=== PATIENT | female | born 1970 | race Hispanic/Latino ===

== ENCOUNTER 2017-09-09 18:08 | Emergency (ER) | payer SELFPAY ==
[2017-09-09 18:16] VITALS: BP 114/66
[2017-09-09] MEDS ORDERED: NORCO 7.5/325 PO ONE (18:53)
[2017-09-09] MEDS ORDERED: MOTRIN PO ONE (18:53)
[2017-09-09] MEDS ORDERED: AUGMENTIN 875 MG PO ONE (18:53)
--- NOTE | 2017-09-09 19:07 | Emergency Department Report ---
Blank Doc - Documentation Documentation: Vision is a 47-year-old female who was bitten the left leg by therefore 4-month-old puppy. Patient jumped on her doctor just above the left knee. Patient's states that the dog has had its rabies shots and is healthy.
--- NOTE | 2017-09-09 19:37 | Emergency Department Report ---
ED Animal Bite HPI - General Chief Complaint: Animal Bite Stated Complaint: DOG BITE Time Seen by Provider: 09/09/17 18:34 Source: patient, family Mode of arrival: Ambulatory Limitations: No Limitations - History of Present Illness Initial Comments: This is a 47-year-old female who is presenting with left side pain secondary to dog bite. Patient states that her her large puppy got excited and jumped up on her and it nipped at her and bit her on the leg. Patient's daughter he's had its rabies shots is healthy. Patient states her pain is a 4 out of 10 in severity - Related Data Previous Rx's Medication Instructions Recorded Last Taken Type Albuterol Sulfate [Ventolin HFA] 2 puff IH Q4H PRN #1 hfa.aer.ad 06/27/13 Unknown Rx Azithromycin [Zithromax Z-ANN-MARIE] 250 mg PO DAILY #6 tab 06/27/13 Unknown Rx Prednisone 40 mg PO QDAY #10 tablet 06/27/13 Unknown Rx Promethazine /Codeine 5 ml PO Q6H PRN #60 ml 06/27/13 Unknown Rx [Phenergan/Codeine 6.25-10 mg/5 ml] Acetaminophen/Codeine 1 tab PO Q6H PRN #14 tab 05/27/14 Unknown Rx [Acetaminophen-Codeine #3 TAB] Cyclobenzaprine [Flexeril 10 MG 10 mg PO TID PRN #20 tablet 05/27/14 Unknown Rx TAB] Promethazine [Phenergan] 25 mg PO Q6H PRN #14 tablet 05/27/14 Unknown Rx Amoxicillin/Potassium Clav 1 each PO BID #14 tablet 09/09/17 Unknown Rx [Augmentin 875-125 Tablet] HYDROcodone/APAP 5-325 [[place] 1 each PO Q6HR PRN #12 tablet 09/09/17 Unknown Rx 5/325] Ibuprofen [Motrin 800 MG tab] 800 mg PO TID PRN #20 tablet 09/09/17 Unknown Rx Allergies Allergy/AdvReac Type Severity Reaction Status Date / Time No Known Allergies Allergy Verified 06/26/13 23:29 ED Review of Systems ROS: Stated complaint: DOG BITE Other details as noted in HPI Comment: All other systems reviewed and negative ED Past Medical Hx - Past Medical History Hx Hypertension: No Additional medical history: chronic back pain - Surgical History Past Surgical History?: No - Social History Smoking Status: Never Smoker Substance Use Type: None - Medications Home Medications: Home Medications Medication Instructions Recorded Confirmed Last Taken Type Albuterol Sulfate [Ventolin HFA] 2 puff IH Q4H PRN #1 hfa.aer.ad 06/27/13 Unknown Rx Azithromycin [Zithromax Z-ANN-MARIE] 250 mg PO DAILY #6 tab 06/27/13 Unknown Rx Prednisone 40 mg PO QDAY #10 tablet 06/27/13 Unknown Rx Promethazine /Codeine 5 ml PO Q6H PRN #60 ml 06/27/13 Unknown Rx [Phenergan/Codeine 6.25-10 mg/5 ml] Acetaminophen/Codeine 1 tab PO Q6H PRN #14 tab 05/27/14 Unknown Rx [Acetaminophen-Codeine #3 TAB] Cyclobenzaprine [Flexeril 10 MG 10 mg PO TID PRN #20 tablet 05/27/14 Unknown Rx TAB] Promethazine [Phenergan] 25 mg PO Q6H PRN #14 tablet 05/27/14 Unknown Rx Amoxicillin/Potassium Clav 1 each PO BID #14 tablet 09/09/17 Unknown Rx [Augmentin 875-125 Tablet] HYDROcodone/APAP 5-325 [[place] 1 each PO Q6HR PRN #12 tablet 09/09/17 Unknown Rx 5/325] Ibuprofen [Motrin 800 MG tab] 800 mg PO TID PRN #20 tablet 09/09/17 Unknown Rx ED Physical Exam - General Limitations: No Limitations General appearance: alert, in no apparent distress - Head Head exam: Present: atraumatic, normocephalic - Eye Eye exam: Present: normal appearance - ENT ENT exam: Present: mucous membranes moist - Neck Neck exam: Present: normal inspection - Respiratory Respiratory exam: Present: normal lung sounds bilaterally. Absent: respiratory distress - Cardiovascular Cardiovascular Exam: Present: regular rate, normal rhythm. Absent: systolic murmur, diastolic murmur, rubs, gallop - GI/Abdominal GI/Abdominal exam: Present: soft, normal bowel sounds - Extremities Exam Extremities exam: Present: normal inspection, other (2 small puncture wounds in the left distal thigh just above the knee) - Back Exam Back exam: Present: normal inspection - Neurological Exam Neurological exam: Present: alert, oriented X3 - Psychiatric Psychiatric exam: Present: normal affect, normal mood - Skin Skin exam: Present: warm, dry, intact, normal color. Absent: rash ED Course Vital Signs 09/09/17 18:13 Temperature 98.7 F Pulse Rate 91 H Respiratory 16 Rate Blood Pressure 114/66 O2 Sat by Pulse 98 Oximetry - Reevaluation(s) Reevaluation #1: 09/09/17 19:35 X-ray shows no foreign bodies. Critical care attestation.: If time is entered above; I have spent that time in minutes in the direct care of this critically ill patient, excluding procedure time. ED Disposition Clinical Impression: Puncture wound Dog bite Qualifiers: Encounter type: initial encounter Qualified Code(s): W54.0XXA - Bitten by dog, initial encounter Disposition: DC- TO HOME OR SELFCARE Is pt being admited?: No Does the pt Need Aspirin: No Condition: Stable Instructions: Animal Bite (ED) Prescriptions: Amoxicillin/Potassium Clav [Augmentin 875-125 Tablet] 1 each PO BID #14 tablet HYDROcodone/APAP 5-325 [[place] 5/325] 1 each PO Q6HR PRN #12 tablet PRN Reason: Pain Ibuprofen [Motrin 800 MG tab] 800 mg PO TID PRN #20 tablet PRN Reason: Pain
--- NOTE | 2017-09-09 21:52 | XRay Report ---
FINAL REPORT PROCEDURE: XR KNEE 1-2V LT TECHNIQUE: Left knee, two views HISTORY: FB (tooth fragments)Dog bit 4 inches above lateral of knee femur on outside COMPARISON: No prior studies are available for comparison. FINDINGS: No fracture or dislocation is seen. No joint effusion. No radiopaque foreign body is identified. IMPRESSION: No radiopaque foreign body is seen
== END 2017-09-09 19:40 | disposition home or self-care (01) ==
LOC: ED 18:08
DX: S71.152A Open bite, left thigh, initial encounter (principal); W54.0XXA Bitten by dog, initial encounter; Y93.89 Activity, other specified; Y92.89 Other specified places as the place of occurrence of the external cause; Y99.8 Other external cause status
CPT/HCPCS: 99283

== ENCOUNTER 2018-11-04 19:52 | Emergency (ER) | payer OTHER ==
--- NOTE | 2018-11-04 20:14 | Emergency Department Report ---
Blank Doc - Documentation Documentation: This is a 48-year-old female that presents with RUQ. Denies any n/v. This initial assessment/diagnostic orders/clinical plan/treatment(s) is/are subject to change based on patient's health status, clinical progression and re- assessment by fellow clinical providers in the ED. Further treatment and workup at subsequent clinical providers discretion. Patient/guardians urged not to elope from the ED as their condition may be serious if not clinically assessed and managed. Initial orders include: 1- Patient sent to [facility] for further evaluation and treatment 2- labs 3- UA
[2018-11-04 20:48] LABS: Basophils % (Auto) 0.6 % (0.0-1.8); Eosinophils # (Auto) 0.2 K/mm3 (0.0-0.4); Eosinophils % (Auto) 2.4 % (0.0-4.3); Hematocrit 36.6 % (30.3-42.9); Hemoglobin 12.1 gm/dl (10.1-14.3); Lymphocytes # (Auto) 2.4 K/mm3 (1.2-5.4); Lymphocytes % (Auto) 32.8 % (13.4-35.0); Mean Corpuscular HGB Conc 33 % (30-34); Mean Corpuscular Volume 83 fl (79-97); Monocytes # (Auto) 0.5 K/mm3 (0.0-0.8); Monocytes % (Auto) 6.6 % (0.0-7.3); Platelet Count 263 K/mm3 (140-440); Red Blood Count 4.44 M/mm3 (3.65-5.03); Red Cell Distribution Width 14.1 % (13.2-15.2)
[2018-11-04 21:05] LABS: Alanine Aminotransferase 14 units/L (7-56); Albumin 4.3 g/dL (3.9-5); BUN/Creatinine Ratio 16; Blood Urea Nitrogen 14 mg/dL (7-17); Calcium 9.2 mg/dL (8.4-10.2); Hemolysis Index 2
[2018-11-04 21:18] LABS: Bilirubin,Direct < 0.2 mg/dL (0-0.2)
[2018-11-04] MEDS ORDERED: TORADOL IV ONE (21:42)
[2018-11-04] MEDS ORDERED: NACL 0.9% 1000 ML 1,000 ML IV ONE (21:42)
[2018-11-04] MEDS ORDERED: ZOFRAN IV ONE (21:42)
[2018-11-04] MEDS ORDERED: PEPCID IV ONE (21:43)
--- NOTE | 2018-11-04 21:57 | Emergency Department Report ---
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 Patient states that the pain gets worse with food although she cannot remember what her initial meal that initially triggered the onset of the symptoms. Patient denies chest pain, shortness of breath, fever, chills, dysuria, urinary frequency and urgency, hematuria, vaginal bleeding, diarrhea, nausea, vomiting, dizziness, traumatic injury, heavy lifting, fall or back pain. MD Complaint: abdominal pain, flank pain -: Sudden, days(s) (4) Location: RUQ, R flank Radiation: RUQ, R flank Migration to: no migration Severity: severe Severity scale (0 -10): 8 Quality: aching, sharp Consistency: constant Improves With: nothing Worsens With: eating Context: other (none) Associated Symptoms: anorexia. denies: nausea, vomiting, diarrhea, fever, dysuria, hematochezia Treatments Prior to Arrival: other (None) - Related Data Previous Rx's Medication Instructions Recorded Last Taken Type Albuterol Sulfate [Ventolin HFA] 2 puff IH Q4H PRN #1 hfa.aer.ad 06/27/13 Unknown Rx Azithromycin [Zithromax Z-ANN-MARIE] 250 mg PO DAILY #6 tab 06/27/13 Unknown Rx Prednisone 40 mg PO QDAY #10 tablet 06/27/13 Unknown Rx Promethazine /Codeine 5 ml PO Q6H PRN #60 ml 06/27/13 Unknown Rx [Phenergan/Codeine 6.25-10 mg/5 ml] Acetaminophen/Codeine 1 tab PO Q6H PRN #14 tab 05/27/14 Unknown Rx [Acetaminophen-Codeine #3 TAB] Cyclobenzaprine [Flexeril 10 MG 10 mg PO TID PRN #20 tablet 05/27/14 Unknown Rx TAB] Promethazine [Phenergan] 25 mg PO Q6H PRN #14 tablet 05/27/14 Unknown Rx Amoxicillin/Potassium Clav 1 each PO BID #14 tablet 09/09/17 Unknown Rx [Augmentin 875-125 Tablet] HYDROcodone/APAP 5-325 [[place] 1 each PO Q6HR PRN #12 tablet 09/09/17 Unknown Rx 5/325] Ibuprofen [Motrin 800 MG tab] 800 mg PO TID PRN #20 tablet 11/05/18 Unknown Rx Tizanidine HCl [Zanaflex] 4 mg PO Q8H PRN #15 capsule 11/05/18 Unknown Rx traMADol [Ultram] 50 mg PO Q6HR PRN 3 Days #15 tablet 11/05/18 Unknown Rx Allergies Allergy/AdvReac Type Severity Reaction Status Date / Time No Known Allergies Allergy Verified 06/26/13 23:29 ED Review of Systems ROS: Stated complaint: RT SIDE PAIN Other details as noted in HPI Comment: All other systems reviewed and negative Constitutional: no symptoms reported, see HPI Eyes: as per HPI ENT: as per HPI Respiratory: no symptoms reported Cardiovascular: as per HPI Endocrine: no symptoms reported, see HPI Gastrointestinal: abdominal pain, other (right flank pain, right upper quadrant pain) Genitourinary: as per HPI, other (right flank pain) Musculoskeletal: as per HPI Skin: as per HPI Neurological: as per HPI Psychiatric: as per HPI Hematological/Lymphatic: as per HPI ED Past Medical Hx - Past Medical History Previous Medical History?: Yes Hx Hypertension: No Additional medical history: chronic back pain - Surgical History Past Surgical History?: No - Family History Family history: no significant - Social History Smoking Status: Never Smoker Substance Use Type: None - Medications Home Medications: Home Medications Medication Instructions Recorded Confirmed Last Taken Type Albuterol Sulfate [Ventolin HFA] 2 puff IH Q4H PRN #1 hfa.aer.ad 06/27/13 Unknown Rx Azithromycin [Zithromax Z-ANN-MARIE] 250 mg PO DAILY #6 tab 06/27/13 Unknown Rx Prednisone 40 mg PO QDAY #10 tablet 06/27/13 Unknown Rx Promethazine /Codeine 5 ml PO Q6H PRN #60 ml 06/27/13 Unknown Rx [Phenergan/Codeine 6.25-10 mg/5 ml] Acetaminophen/Codeine 1 tab PO Q6H PRN #14 tab 05/27/14 Unknown Rx [Acetaminophen-Codeine #3 TAB] Cyclobenzaprine [Flexeril 10 MG 10 mg PO TID PRN #20 tablet 05/27/14 Unknown Rx TAB] Promethazine [Phenergan] 25 mg PO Q6H PRN #14 tablet 05/27/14 Unknown Rx Amoxicillin/Potassium Clav 1 each PO BID #14 tablet 09/09/17 Unknown Rx [Augmentin 875-125 Tablet] HYDROcodone/APAP 5-325 [[place] 1 each PO Q6HR PRN #12 tablet 09/09/17 Unknown Rx 5/325] Ibuprofen [Motrin 800 MG tab] 800 mg PO TID PRN #20 tablet 11/05/18 Unknown Rx Tizanidine HCl [Zanaflex] 4 mg PO Q8H PRN #15 capsule 11/05/18 Unknown Rx traMADol [Ultram] 50 mg PO Q6HR PRN 3 Days #15 tablet 11/05/18 Unknown Rx ED Physical Exam - General Limitations: Language Barrier General appearance: alert, in no apparent distress - Head Head exam: Present: atraumatic, normocephalic, normal inspection - Eye Eye exam: Present: normal appearance, PERRL, EOMI Pupils: Present: normal accommodation - ENT ENT exam: Present: normal exam, normal orophraynx, mucous membranes moist, TM's normal bilaterally, normal external ear exam - Neck Neck exam: Present: normal inspection, full ROM - Respiratory Respiratory exam: Present: normal lung sounds bilaterally - Cardiovascular Cardiovascular Exam: Present: regular rate, normal rhythm, normal heart sounds - GI/Abdominal GI/Abdominal exam: Present: soft, tenderness (palpable right flank and right upper quadrant tenderness, negative Bernal's sign), normal bowel sounds - Rectal Rectal exam: Present: deferred - Extremities Exam Extremities exam: Present: normal inspection, full ROM, normal capillary refill - Back Exam Back exam: Present: normal inspection - Neurological Exam Neurological exam: Present: alert, oriented X3, CN II-XII intact, normal gait, reflexes normal - Psychiatric Psychiatric exam: Present: normal affect - Skin Skin exam: Present: warm, dry, normal color ED Course Vital Signs 11/04/18 19:58 Temperature 98.4 F Pulse Rate 88 Respiratory 18 Rate Blood Pressure 107/64 O2 Sat by Pulse 99 Oximetry ED Medical Decision Making - Lab Data Result diagrams: 11/04/18 20:24 11/04/18 20:24 - Radiology Data Radiology results: report reviewed, image reviewed - Medical Decision Making Patient is alert and oriented 3 and is not in distress with normal vital signs. Patient had presented to the ED with complaint of right flank pain that radiated to right upper quadrant area. Labs were drawn and gallbladder ultrasound ordered as well as abdomen and pelvis CT without contrast to rule out any kidney stones. Patient was also treated for pain in the ED. On reevaluation, patient's pain is well controlled, patient resting comfortably in the room in no acute distress. Lab test results were reviewed including urinalysis and are all unremarkable. Gallbladder ultrasound shows normal ga llstones, no evidence of cholecystitis or any abnormalities. Abdomen pelvis CT scan without contrast shows no kidney stones or hydronephrosis. There are however small liver cysts. Of note was also mucosal thickening of colonic wall suspected to be mild colitis. However the patient's complaint was right flank pain and the physical exam of the abdomen did not elicit any lower abdominal tenderness. Patient was discharged home on pain medications and muscle relaxants for suspected muscle strain or muscle spasm on the patient's posterior thoracic area. Patient was advised to follow-up with her primary care physician in 5-7 days for reevaluation or return to the ED immediately if symptoms get worse. - Differential Diagnosis Gallstones; Kidney stones; Muscle spasm of back; muscle strain Critical care attestation.: If time is entered above; I have spent that time in minutes in the direct care of this critically ill patient, excluding procedure time. ED Disposition Clinical Impression: Back spasm, Spasm of thoracic back muscle, Acute right flank pain Disposition: TO HOME OR SELFCARE Is pt being admited?: No Does the pt Need Aspirin: No Condition: Stable Instructions: Abdominal Pain (ED), Muscle Spasm (ED) Additional Instructions: Take medications with food, drink plenty of fluids and follow up with your primary care physician in 5-7 days for reevaluation. Return to the ED immediately if symptoms get worse. Prescriptions: Ibuprofen [Motrin 800 MG tab] 800 mg PO TID PRN #20 tablet PRN Reason: Pain traMADol [Ultram] 50 mg PO Q6HR PRN 3 Days #15 tablet PRN Reason: Pain Tizanidine HCl [Zanaflex] 4 mg PO Q8H PRN #15 capsule PRN Reason: Spasms Referrals: HAYDEE FOWLER MD [Primary Care Provider] - 3-5 Days Time of Disposition: 01:11 Print Language: GERMAN
--- NOTE | 2018-11-04 22:52 | Cat Scan Report ---
PROCEDURE: CT ABDOMEN PELVIS WO CON TECHNIQUE: Computerized axial tomography of the abdomen and pelvis was performed without intravenous contrast. This study is performed without intravascular contrast material and its sensitivity for ab dominal and pelvic pathology, including neoplasms, inflammation, abscess, free fluid, thrombosis, art erial dissection and infarction, is reduced compared with a contrast enhanced study. CT DOSE LENGTH PRODUCT: 1501.5 mGycm HISTORY: Right flank pain COMPARISONS: None . FINDINGS: Lower Lung stall[place]: No focal abnormalities seen. Upper Abdomen: There is a low-density nodule in the right lobe of the liver laterally and inferiorly measuring approximately 1.4 cm. A nodular density measuring 1.3 x 0.9 cm located in the left lobe of the liver anteriorly to the right of falciform ligament and a similar-appearing 6 mm low-density lesi on seen in the left lobe of the liver laterally. I suspect these represent cysts which could be confi rmed with ultrasound if clinically indicated. Gallbladder showed no abnormalities. The adrenal glands , the pancreas and spleen are unremarkable. Kidneys, Ureters and Urinary bladder: No abnormalities are identified. No renal or ureteral calculi are seen. There is no hydronephrosis. No renal masses are detected. Retroperitoneum: Abdominal aorta appears normal. Nonspecific subcentimeter lymph nodes are seen in the retroperitoneum. No pathologically enlarged ly mph nodes are identified. Bowel: Submucosal layer of the descending colon and sigmoid colon are diffusely prominent. I cannot exclude a mild nonspecific colitis. This is best visualized on the coronal reconstructions. The remai nder the colon is unremarkable. Normal-appearing appendix in the right lower quadrant. No evidence of bowel obstruction or ascites. There is no free intraperitoneal gas. Reproductive organs: The uterus and adnexa are unremarkable. Other: No acute bone abnormalities are seen. IMPRESSION: The submucosal layer of the descending colon and sigmoid colon are diffusely prominent. I cannot excl ude a nonspecific colitis. Bowel loops otherwise are unremarkable. Low-density nodule seen in the liver as described probably representing small hepatic cysts. This cou ld be confirmed with ultrasound if clinically indicated. This document is electronically signed by Rodolfo Arias MD., Nov 04 2018 10:50:34 PM ET
[2018-11-04 23:29] LABS: Bilirubin,Urine NEG (Negative); Blood,Urine NEG (Negative); Color,Urine Yellow (Yellow); Protein,Urine <15 mg/dL mg/dL (Negative); Urobilinogen,Urine < 2.0 mg/dL (<2.0)
[2018-11-04 23:58] LABS: HCG Qualitative,Urine Negative (Negative)
--- NOTE | 2018-11-05 | Ultrasound Report ---
PROCEDURE: US GALLBLADDER TECHNIQUE: Real-time sonography in multiple planes of the gallbladder fossa and CBD with imaging of the adjacent liver, pancreas, and right kidney was performed with image documentation. CPT 39937 HISTORY: Abdominal pain COMPARISONS: None . FINDINGS: Liver: Normal size and echotexture with no evidence of cystic or solid mass lesion. Gallbladder: Fluid filled. No gallstones, wall thickening, pericholecystic fluid, or sonographic Mur phy's sign. Intrahepatic bile ducts: Normal . Extrahepatic bile ducts: Normal. Pancreas: Normal as visualized with suboptimal depiction of the pancreatic tail. Right kidney: Normal echotexture. No focal renal mass, calculus, or hydronephrosis. Other: No free fluid. IMPRESSION: Normal Examination . This document is electronically signed by Ruiz Davis MD., Nov 04 2018 11:59:01 PM ET
[2018-11-05 01:53] VITALS: BP 120/66
== END 2018-11-05 02:37 | disposition home or self-care (01) ==
LOC: ED 19:52
DX: R10.9 Unspecified abdominal pain (principal); M62.830 Muscle spasm of back
CPT/HCPCS: 36415; 74176; 76705; 80048; 80076; 81001; 81025; 83690; 84703; 85025; 96374; 96375; 99284; J1885; J2405; J7030